=== PATIENT | male | born 1960 | race Caucasian/White ===

== ENCOUNTER 2022-05-27 07:29 | Day surgery (SDC) | payer OTHER ==
[~2022-05-27] VITALS: Ht 180.3 cm; Wt 103.0 kg
[~2022-05-27 07:29] MED LIST: DITR5TAB PO; LOSA25TA13 PO; METO1TAB32 PO; NS 1,000 ML IV ONE; SERT50TA29 PO; SYNT50TA PO
[2022-05-27] MEDS ORDERED: propofoL 200 MG/20 ML VIAL As Ordered ONE (08:06)
[2022-05-27] MEDS ORDERED: LIDOCAINE 2% 100MG/5ML SDV (FOR ANES.) As Ordered ONE (08:06)
[2022-05-27 08:40] VITALS: BP 108/69
== END 2022-05-27 08:50 | disposition home or self-care (01) ==
LOC: M OPP 07:29
PROVIDERS: ATTEND Internal Medicine Gastroenterology
DX: Z12.11 Encounter for screening for malignant neoplasm of colon (principal); K57.30 Diverticulosis of large intestine without perforation or abscess without bleeding; K64.8 Other hemorrhoids; I10 Essential (primary) hypertension; E03.9 Hypothyroidism, unspecified; Z79.890 Hormone replacement therapy; Z79.899 Other long term (current) drug therapy

== ENCOUNTER → 2025-02-10 | Outpatient (CLI) | payer OTHER ==
[~2025-02-10] MED LIST changes: -NS 1,000 ML IV ONE
== END ==
LOC: M SOG 07:18
PROVIDERS: ATTEND Physician Assistant
DX: M79.644 Pain in right finger(s) (principal)